=== PATIENT | female | born 1945 | race Hispanic/Latino ===

== ENCOUNTER 2019-04-02 12:03 | Emergency (ER) | payer OTHER ==
--- OUTSIDE RECORDS SUMMARY | 2019-04-02 12:04 | XMS REPORT ---
:1945 Author Organization eClinicalWorks Care Team Providers Name Role Phone Jarrell, Na Provider Role Unavailable Allergies, Adverse Reactions, Alerts Substance Reaction Event Type codeine Info Not Available Drug Allergy Problems Problem Type Condition Code Onset Dates Condition Status Problem COPD (chronic obstructive pulmonary J44.9 Active disease) Problem Controlled type 2 diabetes mellitus E11.9 Active without complication, without long-term current use of insulin Problem Metabolic syndrome X E88.81 Active Problem Hyponatremia E87.1 Active Assessment Chronic congestive heart failure, I50.9 Active unspecified heart failure type Problem Chronic congestive heart failure, I50.9 Active unspecified heart failure type Assessment Hyponatremia E87.1 Active Problem Depression with anxiety F41.8 Active Problem Chronic obstructive pulmonary J44.9 Active disease, unspecified COPD type Problem Stress at home F43.9 Active Problem Renal mass N28.89 Active Problem Hyperlipemia E78.5 Active Assessment Hyperlipemia E78.5 Active Assessment Controlled type 2 diabetes mellitus E11.9 Active without complication, without long-term current use of insulin Assessment Depression with anxiety F41.8 Active Assessment Chronic obstructive pulmonary J44.9 Active disease, unspecified COPD type Problem HTN (hypertension) I10 Active Problem Hyperglycemia R73.9 Active Assessment HTN (hypertension) I10 Active Problem Obesity E66.9 Active Problem Microalbuminuria R80.9 Active Medications Medication Code Code Instructions Start End Status Dosage System Date Date CoQ-10 [facility] 92678543843 100 MG Orally Active 1 capsule Once a day with a meal Lexapro [facility] 20429602457 10 MG Orally Aug Active 1 tablet Once a day [address] [facility] 88166167789 108 (90 Base) Active 2 puffs as MCG/ACT needed Inhalation every 6 hrs Flonase ND 30397896239 50 MCG/ACT Active 1 spray in Nasally Once a each nostril day Glucophage ND 25799467448 500 MG Orally Active 1 tablet Twice a day with meals B12 Liquid Health NDC 0 Active not defined Booster Metformin HCl ND 35351093969 1000 MG Orally Active 1 tablet Twice a day with meals ProAir RespiClick [facility] 70120480051 108 (90 Base) Active 2 puffs as MCG/ACT needed Inhalation every [address] [facility] 73811818940 100-25 MG Active 1 tablet Orally Once a day Albuterol Sulfate [facility] 07795736531 (2.5 MG/3ML) Aug Active 3 ml as 0.083% 27, needed Inhalation 2018 Three times a day Albuterol Sulfate [facility] 48693680749 (2.5 MG/3ML) Active 3 ml as 0.083% needed Inhalation Three times a day D3 Adult [facility] 81151163770 1000 UNIT Active 1 tablet Orally Once a day Medrol [facility] 94008413849 4 MG Orally Active not defined Fluticasone [facility] 56151014515 0.05% Active USE TWO Propionate SPRAY(S) IN EACH NOSTRIL ONCE DAILY Simvastatin [facility] 27309560993 20MG Orally Active TAKE ONE Once a day TABLET BY MOUTH ONCE DAILY Metformin HCl [facility] 42133985312 500MG Active TAKE ONE TABLET BY MOUTH TWICE DAILY Losartan Potassium [facility] 47688157080 100 MG Orally Active 1 tablet Once a day Symbicort [facility] 57016068038 160-4.5 Active 2 puffs MCG/ACT Inhalation Twice a day Penlac [facility] 24293856785 8 % Externally Active 1 Once a day application to affected area Aspirin [address] [facility] 00516337560 81 MG Orally Active 1 tablet Once a day Hydrochlorothiazide [facility] 28456170486 25 MG Orally Active 1 tablet in Once a day the morning Results No Known Results Summary Purpose eClinicalWorks Submission
--- OUTSIDE RECORDS SUMMARY | 2019-04-02 12:04 | XMS REPORT ---
:1945 [facility] Jeremias Beth [address] [place] [id number] Care Team Providers Name Role Phone Unavailable Unavailable Unavailable Problems This patient has no known problems. Allergies, Adverse Reactions, Alerts This patient has no known allergies or adverse reactions. Medications This patient has no known medications.
--- OUTSIDE RECORDS SUMMARY | 2019-04-02 12:05 | XMS REPORT ---
:1945 Author Organization eClinicalWorks Care Team Providers Name Role Phone Jarrell, Na Provider Role Unavailable Allergies No Known Allergies Problems Problem Type Condition Code Onset Dates Condition Status Problem Renal mass N28.89 Active Problem Hyponatremia E87.1 Active Problem Chronic congestive heart failure, I50.9 Active unspecified heart failure type Problem Acquired hyperlipoproteinemia E78.5 Active Problem BMI 31.0-31.9,adult Z68.31 Active Assessment Acute non-recurrent maxillary J01.00 Active sinusitis Problem Chronic obstructive pulmonary J44.0 Active disease with acute lower respiratory infection Problem Left kidney mass N28.89 Active Problem Depression with anxiety F41.8 Active Problem Right kidney mass N28.89 Active Problem Influenza vaccination administered Z23 Active at current visit Problem Stress at home F43.9 Active Problem Chronic obstructive pulmonary J44.9 Active disease, unspecified COPD type Problem Metabolic syndrome X E88.81 Active Problem Controlled type 2 diabetes mellitus E11.9 Active without complication, without long-term current use of insulin Problem Obesity E66.9 Active Problem Microalbuminuria R80.9 Active Problem HTN (hypertension) I10 Active Problem COPD (chronic obstructive pulmonary J44.9 Active disease) Problem Hyperglycemia R73.9 Active Problem Hyperlipemia E78.5 Active Medications Medication Code System Code Instructions Start End Date Status Dosage Date Augmentin [facility] 50773504614 875-125 MG Orally November 06, Active 1 tablet every 12 hrs 2018 Results No Known Results Summary Purpose eClinicalWorks Submission
--- OUTSIDE RECORDS SUMMARY | 2019-04-02 12:05 | XMS REPORT ---
:1945 Author Organization eClinicalWorks Care Team Providers Name Role Phone Jarrell, Na Provider Role Unavailable Allergies, Adverse Reactions, Alerts Substance Reaction Event Type codeine Info Not Available Drug Allergy Problems Problem Type Condition Code Onset Dates Condition Status Assessment Left kidney mass N28.89 Active Assessment Right kidney mass N28.89 Active Assessment Influenza vaccination administered Z23 Active at current visit Assessment Chronic congestive heart failure, I50.9 Active unspecified heart failure type Assessment Depression with anxiety F41.8 Active Problem COPD (chronic obstructive pulmonary J44.9 Active disease) Assessment Chronic obstructive pulmonary J44.9 Active disease, unspecified COPD type Problem Hyperlipemia E78.5 Active Assessment Hyperlipemia E78.5 Active Problem Renal mass N28.89 Active Problem Hyponatremia E87.1 Active Problem Chronic congestive heart failure, I50.9 Active unspecified heart failure type Problem Acquired hyperlipoproteinemia E78.5 Active Problem BMI 31.0-31.9,adult Z68.31 Active Assessment HTN (hypertension) I10 Active Problem Chronic obstructive pulmonary J44.0 Active disease with acute lower respiratory infection Assessment Controlled type 2 diabetes mellitus E11.9 Active without complication, without long-term current use of insulin Problem Left kidney mass N28.89 Active Problem [...] Active Problem HTN (hypertension) I10 Active Problem Hyperglycemia R73.9 Active Medications Medication Code Code Instructions Start End Status Dosage System Date Date Lexapro [facility] 73797831750 10 MG Orally Inactive 1 tablet Once a day Hydrochlorothiazide ND 70851089092 25 MG Orally Active 1 tablet Once a day in the morning Ventolin HFA [facility] 57434030196 108 (90 Base) Active 2 puffs MCG/ACT as Inhalation needed every 6 hrs Flonase [facility] 24377482812 50 MCG/ACT Active 1 spray Nasally Once a in each day nostril Hyzaar [facility] 11279768525 100-25 MG Active 1 tablet Orally Once a day Ativan [facility] 56035326490 0.5 MG Orally Jul 28, Active 1 tablet 30 mins prior 2018 as to MRI needed CoQ-10 [facility] 55580859433 100 MG Orally Active 1 Once a day capsule with a meal TRUEplus Lancets 30G [facility] 71183515727 - Active USE 1 LANCET TO CHECK GLUCOSE TWICE DAILY Aspirin 81 [facility] 32433769359 81 MG Orally Active 1 tablet Once a day Simvastatin [facility] 63872860860 20MG Orally Active TAKE ONE Once a day TABLET BY MOUTH ONCE DAILY Symbicort [facility] 39722660164 160-4.5 Active INHALE MCG/ACT TWO PUFFS BY MOUTH TWICE DAILY B12 Liquid Health [facility] 0 Active not Booster defined Albuterol Sulfate [facility] 76393561477 (2.5 MG/3ML) Active 3 ml as 0.083% needed Inhalation Three times a day Metformin HCl [facility] 20334981215 1000 MG Orally Active 1 tablet Twice a day with meals D3 Adult [facility] 48048920558 1000 UNIT Active 1 tablet Orally Once a day Metformin HCl [facility] 56109823798 500MG Active TAKE ONE TABLET BY MOUTH TWICE DAILY ReliOn Prime Test [facility] 84519436786 - Active USE ONE STRIP TO CHECK GLUCOSE TWICE DAILY ProAir RespiClick [facility] 73676596684 108 (90 Base) Active 2 puffs MCG/ACT as Inhalation needed every 6 hrs Losartan Potassium [facility] 11603785649 100 MG Orally Active 1 tablet Once a day Results No Known Results Immunizations Vaccine Administration Date FluAD Jul 28, 2018 Summary Purpose eClinicalWorks Submission
--- OUTSIDE RECORDS SUMMARY | 2019-04-02 12:05 | XMS REPORT ---
:1945 Author Organization eClinicalWorks Care Team Providers Name Role Phone Angelita Yan Provider Role Unavailable Allergies, Adverse Reactions, Alerts Substance Reaction Event Type codeine Info Not Available Drug Allergy Problems Problem Type Condition Code Onset Dates Condition Status Problem Hyperlipemia E78.5 Active Problem Controlled type 2 diabetes mellitus E11.9 Active without complication, without long-term current use of insulin Problem Metabolic syndrome X E88.81 Active Problem BMI 31.0-31.9,adult Z68.31 Active Problem Depression with anxiety F41.8 Active Problem Acquired hyperlipoproteinemia E78.5 Active Problem Renal mass N28.89 Active Problem Stress at home F43.9 Active Problem Hyponatremia E87.1 Active Problem Chronic congestive heart failure, I50.9 Active unspecified heart failure type Assessment Microscopic hematuria R31.29 Active Assessment Renal mass N28.89 Active Problem Obesity E66.9 Active Problem Microalbuminuria R80.9 Active Problem HTN (hypertension) I10 Active Problem COPD (chronic obstructive pulmonary J44.9 Active disease) Problem Hyperglycemia R73.9 Active Problem Chronic obstructive pulmonary J44.9 Active disease, unspecified COPD type Medications Medication Code Code Instructions Start End Status Dosage System Date Date Lexapro [facility] 55700289838 10 MG Orally Aug Active 1 tablet Once a day 2017 ProAir RespiClick [facility] 81916859329 108 (90 Base) Active 2 puffs as MCG/ACT needed Inhalation every 6 hrs Ventolin HFA [facility] 67857770903 108 (90 Base) Active 2 puffs as MCG/ACT needed Inhalation every 6 hrs Symbicort [facility] 88353976771 160-4.5 Active 2 puffs MCG/ACT Inhalation Twice a day Hyzaar [facility] 82985001127 100-25 MG Active 1 tablet Orally Once a day Medrol [facility] 93220540843 4 MG Orally Active not defined Aspirin 81 [facility] 48496504184 81 MG Orally Active 1 tablet Once a day Metformin HCl [facility] 35962496851 1000 MG Orally Active 1 tablet Twice a day with meals Albuterol Sulfate [facility] 45041952424 (2.5 MG/3ML) Aug Active 3 ml as 0.083% 27, needed Inhalation 2018 Three times a day Losartan Potassium [facility] 10757608797 100 MG Orally Active 1 tablet Once a day D3 Adult [facility] 46158315571 1000 UNIT Active 1 tablet Orally Once a day Flonase [facility] 02951956627 50 MCG/ACT Active 1 spray in Nasally Once a each nostril day Glucophage [facility] 25887701871 500 MG Orally Active 1 tablet Twice a day with meals CoQ-10 [facility] 09660320334 100 MG Orally Active 1 capsule Once a day with a meal B12 Liquid Health [facility] 0 Active not defined Booster TRUEplus Lancets 30G [facility] 11514589053 - Active USE 1 LANCET TO CHECK GLUCOSE TWICE DAILY Albuterol Sulfate [facility] 38763171207 (2.5 MG/3ML) Active 3 ml as 0.083% needed Inhalation Three times a day Simvastatin [facility] 25267633459 20MG Orally Active TAKE ONE Once a day TABLET BY MOUTH ONCE DAILY Penlac [facility] 22861432890 8 % Externally Active 1 Once a day application to affected area Fluticasone [facility] 86659514229 0.05% Active USE TWO Propionate SPRAY(S) IN EACH NOSTRIL ONCE DAILY Hydrochlorothiazide [facility] 02524637191 25 MG Orally Active 1 tablet in Once a day the morning ReliOn Prime Test [facility] 74716323755 - Active USE ONE STRIP TO CHECK GLUCOSE TWICE DAILY Metformin HCl [facility] 69559226658 500MG Active TAKE ONE TABLET BY MOUTH TWICE DAILY Results Name Result Date Reference Range Unit Abnormality Flag URINALYSIS AUTO W/O SCOPE (17779) ----NIT neg [id number] ----URO 0.2 [id number] ----PROTEIN 1+ [id number] ----pH 6.0 20180610 ----BLO 2+ [id number] ----GLUCOSE neg [id number] ----TORSTEN 1+ [id number] ----BILIRUBIN neg [id number] ----KETONES neg [id number] ----SPECIFIC GRAVITY 1.015 [id number] Summary Purpose eClinicalWorks Submission
--- OUTSIDE RECORDS SUMMARY | 2019-04-02 12:05 | XMS REPORT ---
:1945 Author Organization eClinicalWorks Care Team Providers Name Role Phone Angelita Yan Provider Role Unavailable Allergies No Known Allergies [...] I50.9 Active unspecified heart failure type Problem Obesity E66.9 Active Problem Microalbuminuria R80.9 Active Problem HTN (hypertension) I10 Active Problem COPD (chronic obstructive pulmonary J44.9 Active disease) Problem Hyperglycemia R73.9 Active Problem Chronic obstructive pulmonary J44.9 Active disease, unspecified COPD type Medications No Known Medications Results No Known Results Summary Purpose eClinicalWorks Submission
--- OUTSIDE RECORDS SUMMARY | 2019-04-02 12:05 | XMS REPORT ---
[...] Assessment Acute non-recurrent maxillary J01.00 Active sinusitis Assessment Seasonal allergic rhinitis due to J30.1 Active pollen Problem Chronic obstructive pulmonary J44.0 Active disease [...] Obesity E66.9 Active Problem Microalbuminuria R80.9 Active Assessment Cervicalgia M54.2 Active Problem HTN (hypertension) I10 Active Problem COPD (chronic obstructive pulmonary J44.9 Active disease) Assessment Acute bronchitis, unspecified J20.9 Active organism Problem Hyperglycemia R73.9 Active Problem Hyperlipemia E78.5 Active Medications Medication Code Code Instructions Start End Status Dosage System Date Date D3 Adult [facility] 98564246008 1000 UNIT Active 1 tablet Orally Once a day B12 Liquid Health NDC 0 Active not Booster defined CoQ-[address] [facility] 99444746894 100 MG Orally Active 1 capsule Once a day with a meal Augmentin [facility] 92145136554 875-125 MG Active 1 tablet Orally every 12 hrs Cetirizine HCl ND 14039046128 10 MG Orally Active 1 tablet Once a day Hyzaar [facility] 67488164777 100-25 MG Active 1 tablet Orally Once a day Hydrochlorothiazide [facility] 39494468538 25 MG Orally Active 1 tablet Once a day in the morning Ventolin HFA [facility] 92861186664 108 (90 Base) Active 2 puffs MCG/ACT as needed Inhalation every 6 hrs Simvastatin ND 75254383917 20MG Orally Active TAKE ONE Once a day TABLET BY MOUTH ONCE DAILY Ativan ND 61867788403 0.5 MG Orally Jul 28, Active 1 tablet 30 mins prior 2017 as needed to MRI Flonase [facility] 51725711902 50 MCG/ACT Active 2 spray Nasally Once a in each day nostril ReliOn Prime Test [facility] 03345329682 - Active USE ONE STRIP TO CHECK GLUCOSE TWICE DAILY Symbicort [facility] 65841436530 160-4.5 Active INHALE MCG/ACT TWO PUFFS BY MOUTH TWICE DAILY ProAir RespiClick [facility] 43420988898 108 (90 Base) Active 2 puffs MCG/ACT as needed Inhalation every 6 hrs Tizanidine HCl [facility] 94999640457 2 MG Orally Aug 12, Active 1 tablet two times a 2017 as needed day Albuterol Sulfate [facility] 95970094635 (2.5 MG/3ML) Active 3 ml as 0.083% needed Inhalation Three times a day Metformin HCl [facility] 73539036283 500MG Active TAKE ONE TABLET BY MOUTH TWICE DAILY Metformin HCl [facility] 31274580335 1000 MG Orally Active 1 tablet Twice a day with meals TRUEplus Lancets 30G [facility] 11102213236 - Active USE 1 LANCET TO CHECK GLUCOSE TWICE DAILY Flonase [facility] 91505791838 50 MCG/ACT Active 1 spray Nasally Once a in each day nostril Aspirin [address] [facility] 86367971984 81 MG Orally Active 1 tablet Once a day Losartan Potassium [facility] 19272552436 100 MG Orally Active 1 tablet Once a day Results No Known Results Summary Purpose eClinicalWorks Submission
--- OUTSIDE RECORDS SUMMARY | 2019-04-02 12:05 | XMS REPORT ---
:1945 Author Organization eClinicalWorks Care Team Providers Name Role Phone Jarrell, Na Provider Role Unavailable Allergies No Known Allergies Problems Problem Type Condition Code Onset Dates Condition Status Problem Chronic obstructive pulmonary J44.9 Active disease, unspecified COPD type Problem Metabolic syndrome X E88.81 Active Problem Hyperlipemia E78.5 Active Problem Depression with anxiety F41.8 Active Problem Hyponatremia E87.1 Active Problem BMI 31.0-31.9,adult Z68.31 Active Problem Stress at home F43.9 Active Problem Controlled type 2 diabetes mellitus E11.9 Active without complication, without long-term current use of insulin Problem Chronic congestive heart failure, I50.9 Active unspecified heart failure type Problem Renal mass N28.89 Active Problem Hyperglycemia R73.9 Active Problem Obesity E66.9 Active Problem Microalbuminuria R80.9 Active Problem HTN (hypertension) I10 Active Problem COPD (chronic obstructive pulmonary J44.9 Active disease) Medications Medication Code Code Instructions Start End Status Dosage System Date Date ReliOn Prime [facility] 75385665775 - Active USE ONE Test STRIP TO CHECK GLUCOSE TWICE DAILY Albuterol [facility] 70511248648 (2.5 MG/3ML) Active 3 ml as Sulfate 0.083% needed Inhalation Three times a day Results No Known Results Summary Purpose eClinicalWorks Submission
--- OUTSIDE RECORDS SUMMARY | 2019-04-02 12:05 | XMS REPORT ---
[...] I50.9 Active unspecified heart failure type Assessment Controlled type 2 diabetes mellitus E11.9 Active without complication, without long-term current use of insulin Problem Obesity E66.9 Active Problem Microalbuminuria R80.9 Active Problem HTN (hypertension) I10 Active Problem COPD (chronic obstructive pulmonary J44.9 Active disease) Problem Hyperglycemia R73.9 Active Problem Chronic obstructive pulmonary J44.9 Active disease, unspecified COPD type Medications Medication Code Code Instructions Start End Date Status Dosage System Date Metformin HCl [facility] 35219115018 1000 MG Orally Active 1 tablet Twice a day with meals Results No Known Results Summary Purpose eClinicalWorks Submission
--- OUTSIDE RECORDS SUMMARY | 2019-04-02 12:05 | XMS REPORT ---
[...] failure type Problem Renal mass N28.89 Active Assessment Encounter for screening mammogram Z12.31 Active for malignant neoplasm of breast Assessment Medicare annual wellness visit, Z00.00 Active subsequent Assessment BMI 31.0-31.9,adult Z68.31 Active Assessment Encounter for screening for Z13.820 Active osteoporosis Problem Hyperglycemia R73.9 Active Problem Obesity E66.9 Active Problem Microalbuminuria R80.9 Active Problem HTN (hypertension) I10 Active Problem COPD (chronic obstructive pulmonary J44.9 Active disease) Medications Medication Code Code Instructions Start End Status Dosage System Date Date CoQ [facility] 18401975003 100 MG Orally Active 1 capsule Once a day with a meal Aspirin 81 [facility] 05265618223 81 MG Orally Active 1 tablet Once a day Metformin HCl [facility] 65292744793 500MG Active TAKE ONE TABLET BY MOUTH TWICE DAILY Lexapro [facility] 91236594717 10 MG Orally Aug Active 1 tablet Once a day 2017 Medrol [facility] 05659843838 4 MG Orally Active not defined Fluticasone ND 74515265878 0.05% Active USE TWO Propionate SPRAY(S) IN EACH NOSTRIL ONCE DAILY Ventolin HFA [facility] 82350562957 108 (90 Base) Active 2 puffs as MCG/ACT needed Inhalation every 6 hrs Simvastatin [facility] 92711997762 20MG Orally Active TAKE ONE Once a day TABLET BY MOUTH ONCE DAILY Flonase [facility] 41808935563 50 MCG/ACT Active 1 spray in Nasally Once a each nostril day D3 Adult [facility] 69637149014 1000 UNIT Active 1 tablet Orally Once a day Losartan Potassium [facility] 49609002998 100 MG Orally Active 1 tablet Once a day Albuterol Sulfate [facility] 75494765944 (2.5 MG/3ML) Active 3 ml as 0.083% needed Inhalation Three times a day Hyzaar [facility] 11811889958 100-25 MG Active 1 tablet Orally Once a day TRUEplus Lancets 30G [facility] 35237038557 - Active USE 1 LANCET TO CHECK GLUCOSE TWICE DAILY ReliOn Prime Test [facility] 29671478773 - Active USE ONE STRIP TO CHECK GLUCOSE TWICE DAILY Penlac [facility] 65146492366 8 % Externally Active 1 Once a day application to affected area Glucophage [facility] 54092241802 500 MG Orally Active 1 tablet Twice a day with meals Albuterol Sulfate [facility] 62947770412 (2.5 MG/3ML) Aug Active 3 ml as 0.083% 27, needed Inhalation 2018 Three times a day Symbicort [facility] 26600256940 160-4.5 Active 2 puffs MCG/ACT Inhalation Twice a day Hydrochlorothiazide [facility] 92249019844 25 MG Orally Active 1 tablet in Once a day the morning B12 Liquid Health [facility] 0 Active not defined Booster Metformin HCl [facility] 24673891200 1000 MG Orally Active 1 tablet Twice a day with meals ProAir RespiClick [facility] 88546417971 108 (90 Base) Active 2 puffs as MCG/ACT needed Inhalation every 6 hrs Results No Known Results Summary Purpose eClinicalWorks Submission
--- OUTSIDE RECORDS SUMMARY | 2019-04-02 12:06 | XMS REPORT ---
:1945 Author Organization eClinicalWorks Care Team Providers Name Role Phone Jarrell, Na Provider Role Unavailable Allergies, Adverse Reactions, Alerts Substance Reaction Event Type codeine Info Not Available Drug Allergy Problems Problem Type Condition Code Onset Dates Condition Status Assessment Right kidney mass N28.89 Active Assessment Left kidney mass N28.89 Active Assessment Depression with anxiety F41.8 Active Assessment Chronic congestive heart failure, I50.9 Active unspecified heart failure type Assessment Urinary tract infection, site not N39.0 Active specified Assessment Acute non-recurrent maxillary J01.00 Active sinusitis Assessment Chronic obstructive pulmonary J44.9 Active disease, unspecified COPD type Problem COPD (chronic obstructive pulmonary J44.9 Active disease) Assessment Seasonal allergic rhinitis due to J30.1 Active pollen Problem Hyperlipemia E78.5 Active Assessment Hyperlipemia E78.5 [...] Start End Status Dosage System Date Date Metformin HCl [facility] 87545754921 500MG Active TAKE ONE TABLET BY MOUTH TWICE DAILY ProAir RespiClick [facility] 18989983641 108 (90 Base) Active 2 puffs MCG/ACT as Inhalation needed every 6 hrs Metformin HCl [facility] 84038698381 1000 MG Orally Active 1 tablet Twice a day with meals B12 Liquid Health ND 0 Active not Booster defined Augmentin [facility] 81312527488 875-125 MG October Active 1 tablet Orally every 06, 12 hrs 2018 ReliOn Prime Test [facility] 17186591441 - Active USE ONE STRIP TO CHECK GLUCOSE TWICE DAILY TRUEplus Lancets 30G [facility] 19845092182 - Active USE 1 LANCET TO CHECK GLUCOSE TWICE DAILY Flonase [facility] 94659756977 50 MCG/ACT Active 1 spray Nasally Once a in each day nostril Simvastatin ND 04641278710 20MG Orally Active TAKE ONE Once a day TABLET BY MOUTH ONCE DAILY Albuterol Sulfate [facility] 50511381753 (2.5 MG/3ML) Active 3 ml as 0.083% needed Inhalation Three times a day Tizanidine HCl [facility] 59778110239 2 MG Orally Aug 12, Active 1 tablet two times a 2017 as day needed Cetirizine HCl [facility] 76629377254 10 MG Orally Active 1 tablet Once a day Symbicort [facility] 65425885258 160-4.5 Active INHALE MCG/ACT TWO PUFFS BY MOUTH TWICE DAILY Losartan Potassium [facility] 63896056368 100 MG Orally Active 1 tablet Once a day Aspirin 81 [facility] 70661442864 81 MG Orally Active 1 tablet Once a day Ventolin HFA [facility] 14288754342 108 (90 Base) Active 2 puffs MCG/ACT as Inhalation needed every 6 hrs Hyzaar [facility] 76630946761 100-25 MG Active 1 tablet Orally Once a day Lexapro [facility] 97613228181 10 MG Orally Inactive 1 tablet Once a day CoQ-10 [facility] 62439569871 100 MG Orally Active 1 Once a day capsule with a meal D3 Adult [facility] 40767874612 1000 UNIT Active 1 tablet Orally Once a day Hydrochlorothiazide [facility] 66935723561 25 MG Orally Active 1 tablet Once a day in the morning Flonase [facility] 47531770056 50 MCG/ACT Active 2 spray Nasally Once a in each day nostril Ativan [facility] 15192759310 0.5 MG Orally Inactive 1 tablet 30 mins prior as to MRI needed Flonase [facility] 39280076799 50 MCG/ACT Active 2 spray Nasally Once a in each day nostril Losartan Potassium [facility] 89569081679 100 MG Orally Active 1 tablet Once a day Cetirizine HCl [facility] 47646129297 10 MG Orally Active 1 tablet Once a day Augmentin [facility] 84590487112 875-125 MG Active 1 tablet Orally every 12 hrs Results No Known Results Summary Purpose eClinicalWorks Submission
--- OUTSIDE RECORDS SUMMARY | 2019-04-02 12:06 | XMS REPORT ---
:1945 Author Organization eClinicalWorks Care Team Providers Name Role Phone Lizbet Machado Provider Role Unavailable Allergies, Adverse Reactions, Alerts Substance Reaction Event Type codeine tachycardia;hallucinations Drug Allergy Problems Problem Type Condition Code Onset Dates Condition Status Problem Chronic congestive heart failure, I50.9 Active unspecified heart failure type Problem Depression with anxiety F41.8 Active Problem Hyponatremia E87.1 Active Problem Chronic obstructive pulmonary J44.0 Active disease with acute lower respiratory infection Problem Metabolic syndrome X E88.81 Active Problem Acquired hyperlipoproteinemia E78.5 Active Assessment Allergic contact dermatitis due to L23.7 Active plants, except food Problem Psoriasis L40.9 Active Problem Influenza vaccination administered Z23 Active at current visit Problem Left kidney mass N28.89 Active Problem BMI 31.0-31.9,adult Z68.31 Active Problem Right kidney mass N28.89 Active Problem Chronic obstructive pulmonary J44.9 Active disease, unspecified COPD type Problem HTN (hypertension) I10 Active Problem Controlled type 2 diabetes mellitus E11.9 Active without complication, without long-term current use of insulin Problem Stress at home F43.9 Active Problem Microalbuminuria R80.9 Active Problem COPD (chronic obstructive pulmonary J44.9 Active disease) Problem Hyperglycemia R73.9 Active Problem Hyperlipemia E78.5 Active Problem Obesity E66.9 Active Problem Renal mass N28.89 Active Medications Medication Code Code Instructions Start End Status Dosage System Date Date Ventolin HFA ND 80917110453 108 (90 Base) Active 2 puffs MCG/ACT as needed Inhalation every 6 hrs Cetirizine HCl ND 89971318154 10 MG Orally Active 1 tablet Once a day ProAir RespiClick ND 53133857730 108 (90 Base) Active 2 puffs MCG/ACT as needed Inhalation every 6 hrs B12 Liquid Health NDC 0 Active not Booster defined Flonase ND 97444165079 50 MCG/ACT Active 2 spray Nasally Once a in each day nostril ReliOn Prime Test ND 20109416838 - Active USE ONE STRIP TO CHECK GLUCOSE TWICE DAILY TRUEplus Lancets 30G [facility] 80450747262 - Active USE 1 LANCET TO CHECK GLUCOSE TWICE DAILY Metformin HCl [facility] 41964367332 1000 MG Orally Active 1 tablet Twice a day with meals Hydrochlorothiazide [facility] 62477123734 25 MG Orally Active 1 tablet Once a day in the morning Metformin HCl [facility] 82275742668 500MG Active TAKE ONE TABLET BY MOUTH TWICE DAILY Co Q 10 [facility] [place] [address] Active not defined Flonase [facility] 92400935426 50 MCG/ACT Active 1 spray Nasally Once a in each day nostril Hyzaar [facility] 79120833199 100-25 MG Active 1 tablet Orally Once a day Losartan Potassium [facility] 45839702657 100 MG Orally Active 1 tablet Once a day Simvastatin [facility] 27944538959 20MG Orally Active TAKE ONE Once a day TABLET BY MOUTH ONCE DAILY Losartan Potassium [facility] 76072558446 100 MG Orally Active 1 tablet Once a day Albuterol Sulfate [facility] [place] 21809361117 (2.5 MG/3ML) Active 3 ml as 0.083% needed Inhalation Three times a day Cetirizine HCl [facility] 90608425570 10 MG Orally Active 1 tablet Once a day Aspirin 81 [facility] [place] 37518568444 81 MG Orally Active 1 tablet Once a day Vitamin D-3 [facility] [place] [address] Active not defined Symbicort [facility] 50855550459 160-4.5 Active INHALE MCG/ACT TWO PUFFS BY MOUTH TWICE DAILY Tizanidine HCl [facility] [place] 68939201244 2 MG Orally Aug 12, Active 1 tablet two times a 2018 as needed day Results No Known Results Summary Purpose eClinicalWorks Submission
--- OUTSIDE RECORDS SUMMARY | 2019-04-02 12:06 | XMS REPORT ---
:1945 Author Organization eClinicalWorks Care Team Providers Name Role Phone Jarrell, Na Provider Role Unavailable Allergies, Adverse Reactions, Alerts Substance Reaction Event Type codeine tachycardia;hallucinations Drug Allergy Problems Problem Type Condition Code Onset Dates Condition Status Assessment Left kidney mass N28.89 Active Assessment Seasonal allergic rhinitis due to J30.1 Active pollen Assessment Hyperlipemia E78.5 Active Assessment Chronic obstructive pulmonary J44.9 Active disease, unspecified COPD type Assessment Chronic congestive heart failure, I50.9 Active unspecified heart failure type Assessment Right kidney mass N28.89 Active Assessment HTN (hypertension) I10 Active Assessment Depression with anxiety F41.8 Active Assessment Type 2 diabetes mellitus with other E11.29 Active diabetic kidney complication Problem Chronic congestive heart failure, I50.9 Active unspecified heart failure type Assessment Diverticulitis K57.92 Active Problem Hyponatremia E87.1 Active Problem Depression with anxiety F41.8 Active Problem Right kidney mass N28.89 Active Problem Left kidney mass N28.89 Active Problem Psoriasis L40.9 Active Problem Diverticulitis K57.92 Active Problem COPD (chronic obstructive pulmonary J44.9 Active disease) Problem Microalbuminuria R80.9 Active Problem Diverticulosis K57.90 Active Problem Obesity E66.9 Active Problem BMI 31.0-31.9,adult Z68.31 Active Problem Influenza vaccination administered Z23 Active at current visit Problem Chronic obstructive pulmonary J44.0 Active disease with acute lower respiratory infection Problem Acquired hyperlipoproteinemia E78.5 Active Problem Hyperlipemia E78.5 Active Assessment Proteinuria, unspecified R80.9 Active Problem Metabolic syndrome X E88.81 Active Problem Hyperglycemia R73.9 Active Problem HTN (hypertension) I10 Active Problem Chronic obstructive pulmonary J44.9 Active disease, unspecified COPD type Problem Renal mass N28.89 Active Problem Controlled type 2 diabetes mellitus E11.9 Active without complication, without long-term current use of insulin Problem Stress at home F43.9 Active Medications Medication Code Code Instructions Start End Status Dosage System Date Date Symbicort [facility] 31573469528 160-4.5 Active INHALE MCG/ACT TWO PUFFS BY MOUTH TWICE DAILY B12 Liquid Health ND 0 Active not Booster defined Tizanidine HCl [facility] 08687094085 2 MG Orally Aug 12, Active 1 tablet two times a 2017 as needed day Losartan Potassium [facility] 30269417424 100 MG Orally Active 1 tablet Once a day Hyzaar [facility] 39169050578 100-25 MG Active 1 tablet Orally Once a day Metformin HCl [facility] 95859634397 500MG Active TAKE ONE TABLET BY MOUTH TWICE DAILY Losartan Potassium [facility] 66969639065 100 MG Orally Active 1 tablet Once a day Cipro [facility] 69493712467 500 MG Orally January 27, Active 1 tablet every 12 hrs 2018 Co Q 10 [facility] [address] Active not defined TRUEplus Lancets 30G [facility] 47472665512 - Active USE 1 LANCET TO CHECK GLUCOSE TWICE DAILY Albuterol Sulfate [facility] 16435264298 (2.5 MG/3ML) Active 3 ml as 0.083% needed Inhalation Three times a day Flonase [facility] 39846904195 50 MCG/ACT Active 1 spray Nasally Once a in each day nostril Cetirizine HCl [facility] 05629456408 10 MG Orally Active 1 tablet Once a day Flonase [facility] 90587530727 50 MCG/ACT Active 2 spray Nasally Once a in each day nostril Metformin HCl [facility] 73014160290 1000 MG Orally Active 1 tablet Twice a day with meals Metronidazole ND 01658434303 500 MG Orally January 27January Active 1 tablet Twice a day 2018 ReliOn Prime Test [facility] 23384641888 - Active USE ONE STRIP TO CHECK GLUCOSE TWICE DAILY Cetirizine HCl [facility] 11656830295 10 MG Orally Active 1 tablet Once a day Ventolin HFA [facility] 39487737243 108 (90 Base) Active 2 puffs MCG/ACT as needed Inhalation every 6 hrs Hydrochlorothiazide ND 14051186755 25 MG Orally Active 1 tablet Once a day in the morning Simvastatin ND 89375809801 20MG Orally Active TAKE ONE Once a day TABLET BY MOUTH ONCE DAILY Vitamin D-3 [facility] [address] Active not defined Aspirin 81 [facility] 91208792640 81 MG Orally Active 1 tablet Once a day ProAir RespiClick [facility] 06848860170 108 (90 Base) Active 2 puffs MCG/ACT as needed Inhalation every 6 hrs Results No Known Results Summary Purpose eClinicalWorks Submission
--- OUTSIDE RECORDS SUMMARY | 2019-04-02 12:06 | XMS REPORT ---
:1945 Author Organization eClinicalWorks Care Team Providers Name Role Phone Jarrell, Na Provider Role Unavailable Allergies, Adverse Reactions, Alerts Substance Reaction Event Type codeine tachycardia;hallucinations Drug Allergy Problems Problem Type Condition Code Onset Dates Condition Status Assessment Diverticulosis K57.90 Active Assessment Diverticulitis K57.92 Active Problem Chronic congestive heart failure, I50.9 Active unspecified heart failure type Assessment HTN (hypertension) I10 Active Problem Hyponatremia E87.1 Active Problem Depression [...] hyperlipoproteinemia E78.5 Active Problem Hyperlipemia E78.5 Active Problem Metabolic syndrome X E88.81 Active [...] Start End Status Dosage System Date Date Losartan Potassium [facility] 35434218243 100 MG Orally Active 1 tablet Once a day Hydrochlorothiazide ND 10062625019 25 MG Orally Active 1 tablet Once a day in the morning Losartan Potassium [facility] 32143424849 100 MG Orally Active 1 tablet Once a day Symbicort [facility] 80440529749 160-4.5 Active INHALE MCG/ACT TWO PUFFS BY MOUTH TWICE DAILY TRUEplus Lancets 30G [facility] 67628691812 - Active USE 1 LANCET TO CHECK GLUCOSE TWICE DAILY Hyzaar [facility] 13330499950 100-25 MG Active 1 tablet Orally Once a day Cetirizine HCl [facility] 23618748456 10 MG Orally Active 1 tablet Once a day Cipro [facility] 06248935270 500 MG Orally January Inactive 1 tablet every 12 hrs 2018 Vitamin D-3 [facility] [address] Active not defined B12 Liquid Health ND 0 Active not Booster defined Albuterol Sulfate [facility] 15879327152 (2.5 MG/3ML) Active 3 ml as 0.083% needed Inhalation Three times a day Metformin HCl [facility] 83577905884 500MG Active TAKE ONE TABLET BY MOUTH TWICE DAILY Simvastatin [facility] 59303585930 20MG Orally Active TAKE ONE Once a day TABLET BY MOUTH ONCE DAILY Flonase [facility] 58524129686 50 MCG/ACT Active 2 spray Nasally Once a in each day nostril Metformin HCl [facility] 60789585194 1000 MG Orally Active 1 tablet Twice a day with meals Metronidazole [facility] 50762408754 500 MG Orally January Inactive 1 tablet Twice a day 2018 Cetirizine HCl [facility] 30729954325 10 MG Orally Active 1 tablet Once a day Tizanidine HCl [facility] 00510371436 2 MG Orally Aug 12, Active 1 tablet two times a 2017 as day needed Flonase [facility] 19739060921 50 MCG/ACT Active 1 spray Nasally Once a in each day nostril ProAir RespiClick [facility] 88833693542 108 (90 Base) Active 2 puffs MCG/ACT as Inhalation needed every 6 hrs ReliOn Prime Test [facility] 53958262667 - Active USE ONE STRIP TO CHECK GLUCOSE TWICE DAILY Co Q 10 [facility] [address] Active not defined Aspirin 81 [facility] 41771426043 81 MG Orally Active 1 tablet Once a day Ventolin HFA [facility] 82769848588 108 (90 Base) Active 2 puffs MCG/ACT as Inhalation needed every 6 hrs Results No Known Results Summary Purpose eClinicalWorks Submission
--- OUTSIDE RECORDS SUMMARY | 2019-04-02 12:07 | XMS REPORT ---
:1945 Author Organization [employer] Care Team Providers Name Role Phone Svetlana Smith Provider Role Unavailable Allergies, Adverse Reactions, Alerts Substance Reaction Event Type codeine tachycardia;hallucinations Drug Allergy ZyrTEC insomnia Drug Allergy Problems Problem Type Condition Code Onset Dates Condition Status Assessment Tinea corporis B35.4 Active Assessment Pruritus L29.9 Active Problem Metabolic syndrome X E88.81 Active Problem Depression with anxiety F41.8 Active Problem Left kidney mass N28.89 Active Problem Controlled type 2 diabetes mellitus E11.9 Active without complication, without long-term current use of insulin Problem Right kidney mass N28.89 Active Problem BMI 31.0-31.9,adult Z68.31 Active Problem Influenza vaccination administered Z23 Active at current visit Problem Tinea corporis B35.4 Active Problem Diverticulosis K57.90 Active Problem Obesity E66.9 Active Problem Chronic obstructive pulmonary J44.9 Active disease, unspecified COPD type Problem Pruritus L29.9 Active Problem Stress at home F43.9 Active Problem Chronic obstructive pulmonary J44.0 Active disease with acute lower respiratory infection Problem Acquired hyperlipoproteinemia E78.5 Active Problem Psoriasis L40.9 Active Problem Diverticulitis K57.92 Active Problem Hyperglycemia R73.9 Active Problem HTN (hypertension) I10 Active Problem Microalbuminuria R80.9 Active Problem COPD (chronic obstructive pulmonary J44.9 Active disease) Problem Chronic congestive heart failure, I50.9 Active unspecified heart failure type Problem Hyponatremia E87.1 Active Problem Hyperlipemia E78.5 Active Problem Renal mass N28.89 Active Medications Medication Code Code Instructions Start End Status Dosage System Date Date Simvastatin [facility] 26795977809 20MG Orally Active TAKE ONE Once a day TABLET BY MOUTH ONCE DAILY Losartan Potassium [facility] 23422944814 100 MG Orally Active 1 tablet Once a day TRUEplus Lancets 30G [facility] 43763210569 - Active USE 1 LANCET TO CHECK GLUCOSE TWICE DAILY Co Q 10 [facility] [address] Active not defined Flonase [facility] 10510121786 50 MCG/ACT Active 1 spray in Nasally Once a each nostril day Albuterol Sulfate ND 51563845859 (2.5 MG/3ML) Active 3 ml as 0.083% needed Inhalation Three times a day Symbicort [facility] 47152092047 160-4.5 Active INHALE TWO MCG/ACT PUFFS BY MOUTH TWICE DAILY Metformin HCl [facility] 39684160709 1000 MG Orally Active 1 tablet Twice a day with meals Tizanidine HCl [facility] 36962616578 2 MG Orally Dec Active 1 tablet as two times a 12, needed day 2017 Cetirizine HCl [facility] 75475912106 10 MG Orally Active 1 tablet Once a day Hyzaar [facility] 26465072555 100-25 MG Active 1 tablet Orally Once a day Flonase [facility] 17165842444 50 MCG/ACT Active 2 spray in Nasally Once a each nostril day ProAir RespiClick [facility] 25413386236 108 (90 Base) Active 2 puffs as MCG/ACT needed Inhalation every 6 hrs Ventolin HFA [facility] 52296909223 108 (90 Base) Active 2 puffs as MCG/ACT needed Inhalation every 6 hrs Hydrochlorothiazide [facility] 08013282250 25 MG Orally Active 1 tablet in Once a day the morning Cetirizine HCl [facility] 30789572240 10 MG Orally Active 1 tablet Once a day ReliOn Prime Test [facility] 21293489462 - Active USE ONE STRIP TO CHECK GLUCOSE TWICE DAILY B12 Liquid Health [facility] 0 Active not defined Booster Clotrimazole [facility] 55503075994 1 % Externally March Active 1 Anti-Fungal Twice a day , application 2018 2018 to affected area Aspirin 81 [facility] 31141938696 81 MG Orally Active 1 tablet Once a day Vitamin D-3 [facility] [address] Active not defined HydrOXYzine HCl [facility] 89198890157 25 MG Orally March Active 1 tablet as every 8 hrs , 2018 Results No Known Results Summary Purpose [employer] Submission
[2019-04-02 13:26] LABS: Absolute Lymphocytes (CBC) 1.4 K/uL (0.7-4.9); Basophils % 0.5 % (0-1.3); Hematocrit 36.7 % (36.0-45.0); Lymphocytes % 17.9 % (15.3-44.8); MPV 8.5 fL (7.6-11.3); RBC Red Blood Cell Count 4.39 M/uL (3.86-4.86)
[2019-04-02 13:32] LABS: C-Reactive Protein 8.88 mg/L (<3.00); Potassium 3.9 mmol/L (3.5-5.1)
[2019-04-02 13:55] LABS: Urine Blood 2+ (NEG); Urine Glucose NEGATIVE (NEG); Urine Protein 2+ (NEG)
--- NOTE | 2019-04-02 15:29 | ER ---
Nurse's Notes [facility] Name: Lala Mortensen Age: 74 yrs Sex: Female : 1945 Arrival Date: 04/02/2019 Time: 12:06 Bed 25 Private MD: Charley Jarrell Diagnosis: Rash and other nonspecific skin eruption Presentation: 04/02 12:13 Presenting complaint: Sent from urgent care for itchy rash on groin, arms, and legs x 2 hb weeks. Denies fever/N/V/D/cough. Transition of care: patient was not received from another setting of care. Onset of symptoms is unknown. Risk Assessment: Do you want to hurt yourself or someone else? Patient reports no desire to harm self or others. Care prior to arrival: None. 12:13 Method Of Arrival: Ambulatory hb 12:13 Acuity: SERENA 3 hb 12:46 Initial Sepsis Screen: Does the patient meet any 2 criteria? No. Patient's initial ca1 sepsis screen is negative. Does the patient have a suspected source of infection? No. Patient's initial sepsis screen is negative. Historical: - Allergies: 12:15 Codeine; hb - PMHx: 12:15 COPD; CHF; Hypertension; Hyperlipidemia; Renal Mass; Diverticulitis; hb - PSHx: 12:15 Hand - bilat; Cholecystectomy; Hysterectomy; skin graft - left leg; hb - Immunization history:: Adult Immunizations up to date. - Social history:: Smoking status: Patient/guardian denies using tobacco. - Ebola Screening: : No symptoms or risks identified at this time. Screenin:20 Abuse screen: Denies threats or abuse. Denies injuries from another. Nutritional ca1 screening: No deficits noted. Tuberculosis screening: No symptoms or risk factors identified. Fall Risk None identified. Assessment: 12:20 General: Appears in no apparent distress. comfortable, Behavior is calm, cooperative, ca1 appropriate for age. Pain: Complains of pain in right quadriceps. left anterio thigh Pain does not radiate. Pain currently is 2 out of 10 on a pain scale. Quality of pain is described as burning, stinging, Pain began 2-3 days ago. Neuro: Level of Consciousness is awake, alert, obeys commands, Oriented to person, place, time, situation. Cardiovascular: Heart tones S1 S2 present Capillary refill < 3 seconds Patient's skin is warm and dry. Respiratory: Airway is patent Respiratory effort is even, unlabored, Respiratory pattern is regular, symmetrical, Breath sounds are clear bilaterally. GI: Abdomen is round non-distended, Bowel sounds present X 4 quads. Abd is soft and non tender X 4 quads. : No deficits noted. No signs and/or symptoms were reported regarding the genitourinary system. EENT: No deficits noted. No signs and/or symptoms were reported regarding the EENT system. Derm: Skin is intact, is healthy with good turgor, Skin is pink, warm \T\ dry. Rash noted that is itchy, red, urticaria, on left and right anterior thigh, left lower eye, R ring finger. Musculoskeletal: Circulation, motion, and sensation intact. Capillary refill < 3 seconds, Range of motion: intact in all extremities. 13:18 Reassessment: Patient appears in no apparent distress at this time. Patient and/or ca1 family updated on plan of care and expected duration. Pain level reassessed. Patient is alert, oriented x 3, equal unlabored respirations, skin warm/dry/pink. 14:08 Reassessment: Patient appears in no apparent distress at this time. Patient is alert, ca1 oriented x 3, equal unlabored respirations, skin warm/dry/pink. 15:09 Reassessment: Patient appears in no apparent distress at this time. Patient and/or ca1 family updated on plan of care and expected duration. Pain level reassessed. Patient is alert, oriented x 3, equal unlabored respirations, skin warm/dry/pink. 15:56 Reassessment: Patient appears in no apparent distress at this time. Patient is alert, ca1 oriented x 3, equal unlabored respirations, skin warm/dry/pink. Vital Signs: 12:15 BP 203 / 94; Pulse 80; Resp 16; Temp 97.9; Pulse Ox 100% on R/A; Weight 84.82 kg; hb Height 5 ft. 4 in. (162.56 cm); Pain 0/10; 13:18 BP 146 / 78; Pulse 77; Resp 16 S; Temp 98.1(O); Pulse Ox 97% on R/A; ca1 14:08 BP 131 / 73; Pulse 73; Resp 15 S; Pulse Ox 96% on R/A; ca1 15:09 BP 131 / 72; Pulse 76; Resp 15 S; Pulse Ox 100% ; ca1 15:56 BP 140 / 82; Pulse 70; Resp 16 S; Temp 98(O); Pulse Ox 100% on R/A; ca1 12:15 Body Mass Index 32.10 (84.82 kg, 162.56 cm) hb ED Course: 12:06 Patient arrived in ED. cl3 12:07 Charley Jarrell MD is Private Physician. cl3 12:13 Triage completed. hb 12:15 Arm band placed on. hb 12:16 Annia Hathaway, ARABELLA is Primary Nurse. ca1 12:17 Riley Toure MD is Attending Physician. kdr 12:20 Patient has correct armband on for positive identification. Bed in low position. Call ca1 light in reach. Side rails up X 1. Pulse ox on. NIBP on. Warm blanket given. 12:20 No provider procedures requiring assistance completed. ca1 12:58 Inserted saline lock: 20 gauge in left antecubital area, using aseptic technique. Blood ca1 collected. 15:27 Charley Jarrell MD is Referral Physician. kdr 15:57 IV discontinued, intact, bleeding controlled, No redness/swelling at site. Pressure ca1 dressing applied. Administered Medications: 15:40 Drug: SOLU-Medrol 125 mg Route: IVP; Site: left antecubital; ca1 15:55 Follow up: Response: No adverse reaction ca1 Outcome: 15:28 Discharge ordered by MD. kdr 15:57 Discharged to home ambulatory. ca1 15:57 Condition: stable 15:57 Discharge instructions given to patient, Instructed on discharge instructions, follow up and referral plans. medication usage, Demonstrated understanding of instructions, follow-up care, medications, Prescriptions given X 1. 15:58 Patient left the ED. ca1 Signatures: Riley Toure MD MD kdr Johanna Nuñez RN RN hb Annia Hathaway RN RN ca1 Jaime Lock cl3 Corrections: (The following items were deleted from the chart) 12:16 12:13 Acuity: SERENA 3 hb hb 12:47 12:20 Patient did not have IV access during this emergency room visit. ca1 ca1 13:00 12:13 Acuity: SERENA 4 hb hb
--- NOTE | 2019-04-02 15:30 | EDPHYS ---
Physician Documentation [facility] Name: Lala Mortensen Age: 74 yrs Sex: Female : 1945 Arrival Date: 04/02/2019 Time: 12:06 Bed 25 Private MD: Charley Jarrell ED Physician Riley Toure HPI: 04/02 18:41 This 74 yrs old Female presents to ER via Ambulatory with complaints of Rash. kdr 18:41 The patient's rash thought to be caused by an unknown cause. The rash is located on the kdr body diffusely. The rash can be described as erythematous, macular, papular, There are multiple forms - some are small raised lesions, other are dark and annular - not like Lyme lesions. Onset: The symptoms/episode began/occurred 3 week(s) ago. Associated signs and symptoms: Pertinent positives: burning sensation, itching, Pertinent negatives: difficulty breathing, fever, nausea, swelling of lips, swelling of throat, swelling of tongue, vomiting, wheezing. Severity of symptoms: At their worst the symptoms were mild in the emergency department the symptoms are unchanged. The patient has not experienced similar symptoms in the past. The patient has been recently seen by a physician: the patient's primary care provider. Historical: - Allergies: 12:15 Codeine; hb - PMHx: 12:15 COPD; CHF; Hypertension; Hyperlipidemia; Renal Mass; Diverticulitis; hb - PSHx: 12:15 Hand - bilat; Cholecystectomy; Hysterectomy; skin graft - left leg; hb - Immunization history:: Adult Immunizations up to date. - Social history:: Smoking status: Patient/guardian denies using tobacco. - Ebola Screening: : No symptoms or risks identified at this time. ROS: 18:41 Constitutional: Negative for fever, chills, and weight loss, Eyes: Negative for injury, kdr pain, redness, and discharge, ENT: Negative for injury, pain, and discharge, Neck: Negative for injury, pain, and swelling, Cardiovascular: Negative for chest pain, palpitations, and edema, Respiratory: Negative for shortness of breath, cough, wheezing, and pleuritic chest pain, Abdomen/GI: Negative for abdominal pain, nausea, vomiting, diarrhea, and constipation, Back: Negative for injury and pain, : Negative for injury, bleeding, discharge, and swelling, MS/Extremity: Negative for injury and deformity, Neuro: Negative for headache, weakness, numbness, tingling, and seizure activity. Psych: Negative for depression, anxiety, suicide ideation, homicidal ideation, and hallucinations, Allergy/Immunology: Negative for hives, rash, and allergies, Endocrine: Negative for neck swelling, polydipsia, polyuria, polyphagia, and marked weight changes, Hematologic/Lymphatic: Negative for swollen nodes, abnormal bleeding, and unusual bruising. 18:41 Skin: Positive for erythema, rash. Exam: 18:41 Constitutional: This is a well developed, well nourished patient who is awake, alert, kdr and in no acute distress. Head/Face: Normocephalic, atraumatic. Eyes: Pupils equal round and reactive to light, extra-ocular motions intact. Lids and lashes normal. Conjunctiva and sclera are non-icteric and not injected. Cornea within normal limits. Periorbital areas with no swelling, redness, or edema. Neck: Trachea midline, no thyromegaly or masses palpated, and no cervical lymphadenopathy. Supple, full range of motion without nuchal rigidity, or vertebral point tenderness. No Meningismus. Chest/axilla: Normal chest wall appearance and motion. Nontender with no deformity. No lesions are appreciated. Cardiovascular: Regular rate and rhythm with a normal S1 and S2. No gallops, murmurs, or rubs. Normal PMI, no JVD. No pulse deficits. Respiratory: Lungs have equal breath sounds bilaterally, clear to auscultation and percussion. No rales, rhonchi or wheezes noted. No increased work of breathing, no retractions or nasal flaring. Abdomen/GI: Soft, non-tender, with normal bowel sounds. No distension or tympany. No guarding or rebound. No evidence of tenderness throughout. Back: No spinal tenderness. No costovertebral tenderness. Full range of motion. MS/ Extremity: Pulses equal, no cyanosis. Neurovascular intact. Full, normal range of motion. Neuro: Awake and alert, GCS 15, oriented to person, place, time, and situation. Cranial nerves II-XII grossly intact. Motor strength 5/5 in all extremities. Sensory grossly intact. Cerebellar exam normal. Normal gait. Psych: Awake, alert, with orientation to person, place and time. Behavior, mood, and affect are within normal limits. 18:41 Skin: rash a mild rash is noted, rash can be described as erythematous, macular, nonspecific. Vital Signs: 12:15 BP 203 / 94; Pulse 80; Resp 16; Temp 97.9; Pulse Ox 100% on R/A; Weight 84.82 kg; hb Height 5 ft. 4 in. (162.56 cm); Pain 0/10; 13:18 BP 146 / 78; Pulse 77; Resp 16 S; Temp 98.1(O); Pulse Ox 97% on R/A; ca1 14:08 BP 131 / 73; Pulse 73; Resp 15 S; Pulse Ox 96% on R/A; ca1 15:09 BP 131 / 72; Pulse 76; Resp 15 S; Pulse Ox 100% ; ca1 15:56 BP 140 / 82; Pulse 70; Resp 16 S; Temp 98(O); Pulse Ox 100% on R/A; ca1 12:15 Body Mass Index 32.10 (84.82 kg, 162.56 cm) hb MDM: 15:28 Patient medically screened. kdr 18:41 Data reviewed: vital signs, nurses notes, lab test result(s). Counseling: I had a kdr detailed discussion with the patient and/or guardian regarding: the historical points, exam findings, and any diagnostic results supporting the discharge/admit diagnosis, lab results, the need for outpatient follow up. 04/02 12:41 Order name: CBC with Diff; Complete Time: 15:26 kdr 04/02 12:41 Order name: Chem 7; Complete Time: 13:39 kdr 04/02 12:41 Order name: ESR; Complete Time: 15:26 kdr 04/02 12:41 Order name: CRP; Complete Time: 13:39 kdr 04/02 13:24 Order name: Urine Dipstick--Ancillary (enter results); Complete Time: 15:26 eb 04/02 12:41 Order name: Urine Dipstick-Ancillary (obtain specimen); Complete Time: 13:22 kdr Administered Medications: 15:40 Drug: SOLU-Medrol 125 mg Route: IVP; Site: left antecubital; ca1 15:55 Follow up: Response: No adverse reaction ca1 Disposition: 04/02/19 15:28 Discharged to Home. Impression: Rash and other nonspecific skin eruption. - Condition is Stable. - Discharge Instructions: Rash, [id number]. - Prescriptions for Medrol (Levi) 4 mg Oral Tablets, Dose Pack - take 1 tablet by ORAL route as directed - follow package instructions; 1 packet. - Medication Reconciliation Form, Thank You Letter, Antibiotic Education, Prescription Opioid Use form. - Follow up: Charley Jarrell MD; When: 2 - 3 days; Reason: If symptoms return, Further diagnostic work-up, Recheck today's complaints, Continuance of care, Re-evaluation by your physician. - Problem is new. - Symptoms have improved. Signatures: Dispatcher [employer] EDMA Riley Toure MD MD kdr Johanna Nuñez RN RN Annia Hathaway RN RN ca1 Corrections: (The following items were deleted from the chart) 15:58 15:28 04/02/2019 15:28 Discharged to Home. Impression: Rash and other nonspecific skin ca1 eruption. Condition is Stable. Forms are Medication Reconciliation Form, Thank You Letter, Antibiotic Education, Prescription Opioid Use. Follow up: Charley Jarrell; When: 2 - 3 days; Reason: If symptoms return, Further diagnostic work-up, Recheck today's complaints, Continuance of care, Re-evaluation by your physician. Problem is new. Symptoms have improved. kdr
[2019-04-02] MEDS ORDERED: METHYLPREDNISOLONE 125 MG INJ ONE (15:37)
[2019-04-02 16:08] VITALS: O2SAT 100
[2019-04-02 16:10] VITALS: BP 140/82; TEMP 98
== END 2019-04-02 15:58 | disposition home or self-care (01) ==
LOC: ER 12:03
DX: R21 Rash and other nonspecific skin eruption (principal); Z88.5 Allergy status to narcotic agent; J44.9 Chronic obstructive pulmonary disease, unspecified; I11.0 Hypertensive heart disease with heart failure; I50.9 Heart failure, unspecified; E78.5 Hyperlipidemia, unspecified
CPT/HCPCS: 85025; 80048; 36415; 85652; 81003; 86140; 96374; 99284; J2930